=== PATIENT | male | born 1950 | race Caucasian/White ===

== ENCOUNTER 2020-11-15 07:07 | Day surgery (SDC) | payer OTHER ==
[~2020-11-15] VITALS: Wt 92.6 kg
--- NOTE | 2020-11-15 08:09 | NUR ---
FIRST DOSE GIVEN OF METOPROLOL BP LOWERED BUT STABLE AND HAEART RATE WENT BRIEFLY DOWN TO 62. CARE TURNED OVER TO BRENNA HERZOG RN. PATINET TO CT WITH BRENNA HAINES AND OSCAR LOPEZ. CARE TURNED OVER
--- NOTE | 2020-11-15 08:42 | NUR ---
Patient up to Ambulate independently. Gait steady. Discharge instructions reviewed with patient. Patient verbalizes understanding. Copy given to patient to take home. PT ESCORTED BY RN VIA AMBULATION TO FRONT DOOR.
== END 2020-11-15 08:44 | disposition home or self-care (01) ==
LOC: ORSCMMR 07:07 → CT 07:07 → ORSCMMR 07:30 → ORD 07:30 → CT 08:00 → ORSCMMR 08:44
DX: R07.9 Chest pain, unspecified (principal); M65.30 Trigger finger, unspecified finger; J32.9 Chronic sinusitis, unspecified; M54.5 Low back pain; R22.2 Localized swelling, mass and lump, trunk; K40.90 Unilateral inguinal hernia, without obstruction or gangrene, not specified as recurrent; N20.0 Calculus of kidney; F43.20 Adjustment disorder, unspecified; Z88.0 Allergy status to penicillin; Z88.2 Allergy status to sulfonamides
CPT/HCPCS: 75574; Q9967